=== PATIENT | male | born 1940 | race African-American/Black ===

== ENCOUNTER 2024-07-07 09:04 | Outpatient (CLI) | payer OTHER, SELFPAY ==
--- NOTE | ~2024-07-07 | US_ITS ---
US retroperitoneal comp Ordering provider: Jose Luna, History: . Chronic kidney disease stage 3 . Comparison: None. Technique: Ultrasound bilateral kidneys. Findings: RIGHT KIDNEY: Decreased echogenicity is noted. Measures 10x 6.1 cm in length which is normal in size. Superior pole cyst is seen measuring 3.2 x 2.8 x 2.6 cm.. No renal mass. Stone in the superior pole is seen measuring 1.9 x 0.8 x 1.2 cm. Otherwise, No hydronephrosis. Normal renal cortical thickness. LEFT KIDNEY: Increased echogenicity. Measures 10.8x 6.1x 4.8 cm in length which is normal in size. Cy st is seen in the medial aspect measuring 4.6 x 4.5 x 4.6 cm. No renal mass or visualized echogenic s tones. Otherwise, No hydronephrosis. Normal renal cortical thickness. BLADDER: Wall thicknesses 0.2 cm. Ureteral jets were seen bilaterally. Enlarged prostate measuring 6.7 x 5 x 6.3 cm. Incidental liver cyst measuring 7.4 x 5.5 x 6.7 cm. IMPRESSION: Stone in the right kidney upper pole.. Increased echogenicity of both kidneys which may indicate renal medical disease. Clinical correlation advised. Bilateral renal cysts. Enlarged prostate Hepatic cyst. Reviewed, dictated and finalized at location A. IMPRESSION: Stone in the right kidney upper pole.. Increased echogenicity of both kidneys which may indicate renal medical disease . Clinical correlation advised. Bilateral renal cysts. Enlarged prostate Hepatic cyst.
--- OUTSIDE RECORDS SUMMARY | 2024-07-07 09:18 | XMS_ITS | CONTINUITY OF CARE DOCUMENT ---
Author Name luiza jarrett Address Unknown Organization [facility] Address [address] [place] [address] Phone [phone] Care Team Providers Care Box Strapper Name Role Phone Jersey MCBRIDE, Nataliya Mchugh Unavailable [phone] FARHEEN MCBRIDE, FRIDA Unavailable [phone] FRIDA ZHONG MD Unavailable PROBLEMS Condition Status Date Provider Notes S/P Biotronik dc (MRI Safe) pm active Pretty Lizama Afib active Mandie Ragland HTN essential active Nataliya Putnam MD Syncope vasovagal active Nataliya Littlejohn Cardiac murmur active Nataliya Putnam MD Mitral regurgitation active Nataliya rodríguez MD Sleep apnea, obstructive active Starlabobby geeia 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 typical active Nataliya licea MD Hyperlipidemia active Arjun Conrad MD Unsteady gait active Nataliya Putnam MD Mitral regurgitation active Nataliya rodríguez MD Cardiology examination active Nataliya singleton MD ENCOUNTERS Date Type Provider Location Encounter Diag nosis - In-person encounter Office Visit Nataliya Putnam MD [facility] Cardiology examination - In-person encounter Office Visit Nataliya Putnam MD [facility] - In-person encounter Office Visit Nataliya Putnam MD [facility] Mitral regurgitation - In-person encounter Office Visit Nataliya Putnam MD [facility] - In-person encounter Office Visit Nataliya Putnam MD [facility] Unsteady gait - In-person encounter Office Visit Nataliya Putnam MD [facility] - In-person encounter Office Visit Nataliya Putnam MD [facility] - In-person encounter Office Visit Nataliya Putnam MD [facility] - In-person encounter Office Visit Nataliya Putnam MD [facility] - In-person encounter Office Visit Nataliya Putnam MD [facility] - In-person encounter Office Visit Nataliya Putnam MD [facility] Sleep apnea, obstructive - In-person encounter Office Visit Nataliya Putnam MD [facility] - In-person encounter Office Visit Nataliya Putnam MD [facility] - In-person encounter Office Visit Arjun Conrad MD [facility] Hyperlipidemia - In-person encounter Office Visit Arjun Conrad MD [facility] - In-person encounter Office Visit Nataliya Putnam MD [facility] Sick sinus syndromeAtrial fib paroxysmalAtrial flutter ? typical - In-person encounter Office Visit Nataliya Putnam MD [facility] HTN essentialSyncope vasovagalCardiac murmurMitral regurgitationSleep apnea, obstructiveCarotid bruit rightCongenital heart diseaseEdema - localized VITAL SIGNS Date Observation Value Provider Body Mass Index (Ratio) 24.23 kg/m2 Arturo Putnam MD blood pressure, diastolic 84 mm[Hg] Yesenia nkLog blood pressure, systolic 128 mm[Hg] Yary og weight E&M 159.4 [lb_av] [facility] pulse rate 70 /min [facility] blood pressure, cuff size regular [facility], [facility] mm[Hg] [facility] blood pressure, systolic 128 mm[Hg] Tab [facility] oxygen saturation, oximetry 100 % [facility] respiratory rate E&M 12 /min [facility] height E&M 68 [in_i] [facility] Body Mass Index (Ratio) 26.76 kg/m2 Arturo Putnam MD pulse rate 61 /min [facility] blood pressure, diastolic 102 mm[Hg] [facility] blood pressure, systolic 176 mm[Hg] [facility] oxygen saturation, oximetry 98 % [facility] respiratory rate E&M 16 /min Lesa luna weight E&M 176 [lb_av] [facility] height E&M 68 [in_i] [facility] Body Mass Index (Ratio) 27.82 kg/m2 Arturo Putnam MD blood pressure, diastolic 92 mm[Hg] Yesenia mcnealLog blood pressure, systolic 157 mm[Hg] Yary pulse rate 61 /min Bernabe blood pressure, cuff size regular Ja [facility] blood pressure, diastolic 92 mm[Hg] Ja [facility] blood pressure, systolic 157 mm[Hg] Melita [facility] oxygen saturation, oximetry 99 % Bernabe respiratory rate E&M 12 /min Bernabe weight E&M 183 [lb_av] Bernabe height E&M 68 [in_i] [facility] Body Mass Index (Ratio) 31.11 kg/m2 Arturo Putnam MD blood pressure, diastolic -1 mm[Hg] [facility], systolic 149 mm[Hg] Yary Callahangilmer blood pressure, diastolic 99 mm[Hg] [facility] emir Montez blood pressure, systolic 149 mm[Hg] oJn Montez oxygen saturation, oximetry 98 % Regina Montez pulse rate 73 /min Regina Montez weight E&M 204.6 [lb_av] Regina Montez respiratory rate E&M 16 /min Regina chilel height E&M 68 [in_i] Regina Montez Body Mass Index (Ratio) 32.99 kg/m2 Arturo Putnam MD blood pressure, diastolic 80 mm[Hg] Yesenia mcnealLoggilmer blood pressure, systolic 140 mm[Hg] Yary Callahanoggilmer blood pressure, cuff size large Tr meek Watkins blood pressure, diastolic 80 mm[Hg] Tr meek Watkins blood pressure, systolic 140 mm[Hg] Kvng Watkins oxygen saturation, oximetry 97 % Nataly Watkins respiratory rate E&M 18 /min Nataly Watkins pulse rate 59 /min Nataly Watkins weight E&M 217 [lb_av] Nataly Watkins height E&M 68 [in_i] Nataly Watkins Body Mass Index (Ratio) 34.82 kg/m2 Arturo Putnam MD blood pressure, diastolic 80 mm[Hg] Li nkLoggilmer blood pressure, systolic 136 mm[Hg] Yary kLogic blood pressure, cuff size regular Cy ntcassandraa Farnsworth blood pressure, diastolic 80 mm[Hg] Cy ntcassandraa Farnsworth blood pressure, systolic 136 mm[Hg] Elizabeth estella Farnsworth pulse rate 73 /min Claudia Campbel l oxygen saturation, oximetry 93 % Claudia Farnsworth respiratory rate E&M 18 /min Claudia Farnsworth weight E&M 229 [lb_av] Claudia Campbel l height E&M 68 [in_i] Claudia Campbel l Body Mass Index (Ratio) 34.51 kg/m2 Arturo Putnam MD blood pressure, cuff size regular Cy ntnadja Farnsworth pulse rate 63 /min Claudia Campbel l blood pressure, diastolic 90 mm[Hg] Cy ntcassandraa Farnsworth blood pressure, systolic 138 mm[Hg] Elizabeth brijesha Farnsworth oxygen saturation, oximetry 98 % Claudia Farnsworth respiratory rate E&M 16 /min Claudia Farnsworth weight E&M 227 [lb_av] Claudia Campbel l height E&M 68 [in_i] Claudia Campbel l Body Mass Index (Ratio) 33.90 kg/m2 Arturo Putnam MD blood pressure, diastolic 92 mm[Hg] To nsha Calzada blood pressure, systolic 169 mm[Hg] Ton [facility] respiratory rate E&M 16 /min [facility] pulse rate 67 /min [facility] weight E&M 223 [lb_av] [facility] height E&M 68 [in_i] [facility] Body Mass Index (Ratio) 34.82 kg/m2 Arturo Putnam MD respiratory rate E&M 16 /min [facility] blood pressure, diastolic 67 mm[Hg] To [facility] blood pressure, systolic 140 mm[Hg] Ton [facility] oxygen saturation, oximetry 98 % [facility] pulse rate 60 /min [facility] weight E&M 229 [lb_av] [facility] height E&M 68 [in_i] [facility] Body Mass Index (Ratio) 35.58 kg/m2 Arturo Putnam MD respiratory rate E&M 16 /min Claudia Farnsworth blood pressure, cuff size regular Cy froylan Farnsworth blood pressure, diastolic 80 mm[Hg] Cy ntnadja Farnsworth blood pressure, systolic 136 mm[Hg] Elizabeth estella Farnsworth oxygen saturation, oximetry 98 % Claudia Farnsworth pulse rate 61 /min Claudia Campbel l weight E&M 234 [lb_av] Claudia Campbel l height E&M 68 [in_i] Claudia Campbel l Body Mass Index (Ratio) 35.97 kg/m2 Arturo Putnam MD blood pressure, diastolic 93 mm[Hg] Pablo Busby blood pressure, systolic 143 mm[Hg] Marisela Busby oxygen saturation, oximetry 94 % Jonas Busby respiratory rate E&M 18 /min Caleb Busby pulse rate 67 /min Jonas Keen nsgagan weight E&M 236.6 [lb_av] Jonas alarcon height E&M 68 [in_i] Jonas poole Body Mass Index (Ratio) 36.21 kg/m2 Tio Plurad blood pressure, cuff size regular Ke rri Gruenenfelder blood pressure, diastolic 82 mm[Hg] Ke rri Gruenenfelder blood pressure, systolic 142 mm[Hg] Ker ri Gruenenfelder oxygen saturation, oximetry 98 % Koki Gruenenfelder respiratory rate E&M 18 /min Koki G ruenenfelder pulse rate 61 /min Koki Gruenenfe lder weight E&M 238.2 [lb_av] Koki Gruenenf [facility] height E&M 68 [in_i] Koki Gruenenfe lder Body Mass Index (Ratio) 36.18 kg/m2 Arturo Putnam MD blood pressure, cuff size regular Ke rri Gruenenfelder blood pressure, diastolic 90 mm[Hg] Ke rri Gruenenfelder blood pressure, systolic 142 mm[Hg] Ker ri Gruenenfelder oxygen saturation, oximetry 97 % Koki Gruenenfelder respiratory rate E&M 20 /min Koki G ruenenfelder pulse rate 69 /min Koki Gruenenfe lder weight E&M 238 [lb_av] Koki Gruenenfe lder height E&M 68 [in_i] Koki Gruenenfe lder Body Mass Index (Ratio) 36.73 kg/m2 Kaia Conrad MD blood pressure, diastolic 87 mm[Hg] Pablo Busby blood pressure, systolic 139 mm[Hg] Marisela Daviesyash Busby oxygen saturation, oximetry 94 % Jonas Busby respiratory rate E&M 18 /min Caleb Busby pulse rate 64 /min Jonas poole weight E&M 241.6 [lb_av] Jonas alarcon height E&M 68 [in_i] Jonas poole Body Mass Index (Ratio) 36.73 kg/m2 Arturo Putnam MD blood pressure, diastolic 87 mm[Hg] Pablo Elaine Busby blood pressure, systolic 137 mm[Hg] Marisela Ruth Busby oxygen saturation, oximetry 95 % Jonas Busby respiratory rate E&M 18 /min Caleb yash SchwarzBusby pulse rate 62 /min Jonas poole weight E&M 241.6 [lb_av] Jonas alarcon height E&M 68 [in_i] Jonas poole Body Mass Index (Ratio) 36.43 kg/m2 Arturo Putnam MD blood pressure, resting Yes Pretty Schwarzenson blood pressure, diastolic 90 mm[Hg] Pablo mitchelAllyyamilet Busby blood pressure, systolic 144 mm[Hg] Marisela Guptawendy Busby oxygen saturation, oximetry 94 % Jonasyamilet Busby respiratory rate E&M 18 /min Caleb Busby pulse rate 63 /min Jonas poole weight E&M 239.6 [lb_av] Jonas alarcon height E&M 68 [in_i] Jonas poole ALLERGIES No Known Drug Allergies RESULTS Date Observation Value Provider Reference Range Interpretation Location activated partial thromboplastin time (aPTT) 31.0 s LinkLog[facility] Units converted. See lab report for original value. prothrombin time (patient) 11.4 s [facility] 9.1-12.0 international normalized ratio (INR) 1.1 [facility] 0.8-1.2 bacteria, urine microscopy Few [facility] None seen/Few Crystal Type, Urine Calcium Oxalate [facility] N/A cast type, urinalysis Hyaline casts [facility] N/A hyaline casts, urine Present [facility] None seen Abnormal epithelial cells, urine 0-10 [facility] 0 - 10 RBC, Urine 3-10 /hpf [facility] 0 - 2 Abnormal WBC urine on microscopy 0-5 /hpf [facility] 0 - 5 urinalysis, microscopic examination See below: [facility] nitrate, urine Negative [facility] Negative urobilinogen, urine, semiquantitative (dipstick) 1.0 [facility] 0.2-1.0 bilirubin, urine Negative [facility] Negative hemoglobin, urine, by dipstick Trace [facility] Negative Abnormal ketones, urine, by test strip Negative [facility] Negative glucose, urine Negative [facility] Negative protein, urine, semiquantitative (dipstick) Negative [facility] Negative/Tra ce leukocyte esterase, urine, by dipstick Negative [facility] Negative appearance, urine Clear [facility] Clear urine color Yellow [facility]ic Yellow pH, urine, semiquantitative 6.5 [facility] 5.0-7.5 specific gravity, body fluid 1.022 [facility] 1.005-1.030 basophil count, absolute 0.1 x10E3/uL [facility] 0.0-0.2 Eosinophil Absolute Count 0.3 X10E3/UL [facility] 0.0-0.4 monocyte count, blood, automated 0.9 X10E3/UL [facility] 0.1-0.9 lymphocyte count, blood, automated 3.2 X10E3/UL [facility] 0.7-3.1 High Absolute Neutrophils 4.1 X10E3/UL [facility] 1.4-7.0 basophils as percent of blood leukocytes 1 % [facility] eosinophils as percent of blood leukocytes 3 % [facility] monocytes as percent of blood leukocytes 10 % [facility] lymphocytes as percent of blood leukocytes 37 % [facility] neutrophils as percent of blood leukocytes 49 % [facility] platelet count 181 X10E3/UL [facility] 500-888 6304/08/ 08 red blood cell distribution width 15.0 % [facility] 12.3-15.4 mean corpuscular hemoglobin concentration, RBC 33.6 G/DL [facility] 31.5-35.7 mean corpuscular hemoglobin, RBC 31.0 pg [facility] 26.6-33.0 mean corpuscular volume, RBC 92 fL [facility] 79-97 hematocrit, blood 44.0 % [facility] 37.5-51.0 hemoglobin, blood 14.8 g/dL [facility] 12.6-17.7 erythrocyte (RBC) count 4.77 X10E6/UL [facility] 4.14-5.80 leukocyte count, blood 8.5 X10E3/UL [facility] 3.4-10.8 alanine aminotransferase (SGPT), serum 21 1/L [facility] 0-44 aspartate aminotransferase (SGOT), serum 26 1/L [facility] 0-40 alkaline phosphatase, serum 91 1/L [facility] 39-117 bilirubin, serum, total 0.8 mg/dL [facility] 0.0-1.2 albumin/globulin ratio, serum 1.4 [facility] 1.2-2.2 globulin, serum 3.0 [facility] 1.5-4.5 albumin, serum 4.3 g/dL [facility] 3.5-4.8 protein, total, serum 7.3 g/dL [facility] 6.0-8.5 calcium, serum 9.7 mg/dL [facility] 8.6-10.2 carbon dioxide, venous blood 29 mmol/L [facility] 18-29 chloride, serum 102 mmol/L [facility] 96-106 potassium, serum 4.0 mmol/L [facility] 3.5-5.2 sodium, serum 146 mmol/L [facility] 134-144 High urea nitrogen/creatinine ratio, serum 15 [facility] 10-24 eGFR if not 41 mL/min/{1.7 3_m2} [facility]ic >59 Low creatinine, serum 1.60 mg/dL [facility] 0.76-1.27 High urea nitrogen, blood 24 mg/dL [facility]ic 8-27 blood glucose, random 90 mg/dL [facility] 65-99 HISTORY OF MEDICATION USE Medication Status Instructions Dates Provider Indications Com ments Eliquis 5 mg tablet active TAKE 1 TABLET BY MOUTH TWICE DAILY 0 Cassandra Scott 0.01% drops active Use as needed 2 Claudia Farnsworth Fish Oil 300-1,000 mg capsule active Take once a day 4 Claudia Farnsworth Fish Oil 360-1,200 mg capsule completed 1 once a day - 6 Juany Franks NP tramadol 50 mg tablet active 1 tablet once a day Jonas Busby Eliquis 5 mg tablet completed Take 1 tablet by mouth twice a day 0 - 0 Roland Villalpando MULTIVITAMINS ORAL CAPSULE active 1 tablet once a day Jonas Busby potassium chloride 20 mEq tablet,ER particles/crystal s active 1 tablet once a day Jonas Busby lisinopril 40 mg tablet active 1 tablet once a day 2 Nataliya Putnam MD atorvastatin 40 mg tablet active once a day Jonas Busby furosemide 20 mg tablet active once a day Jonas Busby atenolol 25 mg tablet active 1 tablet once a day Jonas Busby nifedipine 60 mg tablet extended release active 1 tablet once a day Jonas Busby calcitriol 0.25 mcg capsule active once a day Jonas Busby SOCIAL HISTORY Date Observation Value Provider smoking status Never smoker Nataliya singleton MD smoking status Never smoker Lesa Chou social history reviewed E&M revi ewed - no changes required Nataliya Putnam MD social history E&M S moking History: Stephanie moran has never smoked. Nataliya Putnam MD social history reviewed E&M revi ewed - no changes required Nataliya Putnam MD smoking status Never smoker Regina Tc social history E&M S moking History: Stephanie moran has never smoked. Nataliya Putnam MD social history reviewed E&M revi ewed - no changes required Nataliya Putnam MD smoking status Never smoker Nataly gongora social history E&M S moking History: Stephanie moran has never smoked. Nataliya Putnam MD social history reviewed E&M revi ewed - no changes required Nataliya Putnam MD smoking status Never smoker Claudia barger social history reviewed E&M revi ewed - no changes required Nataliya Putnam MD social history E&M S moking History: Stephanie moran has never smoked. Nataliya Putnam MD smoking status Never smoker Claudia barger smoking status Never smoker Nataliya singleton MD social history E&M S moking History: Stephanie moran has never smoked. 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 Starla Ventimiglia BUFFET WAITER/WAITRESS smoking status Never smoker Jonas Crook social history E&M S moking History: P luisa has never smoked. Nataliya Putnam MD social history reviewed E&M revi ewed - no changes required Nataliya Putnam MD smoking status Never smoker Koki torres number of grandchildren Nataliya Putnam MD social history reviewed E&M revi ewed - no changes required Nataliya Putnam MD social history E&M S moking History: Stephanie moran has never smoked. Nataliya Putnam MD smoking status Never smoker Koki torres number of grandchildren Arjun Conrad MD smoking status Never smoker Jonas Mera serinameredith social history reviewed E&M revi ewed - no changes required Nataliya Putnam MD social history E&M S moking History: Stephanie moran has never smoked. Nataliya Putnam MD smoking status Never smoker Jonas Crook number of grandchildren Nataliya Putnam MD social history reviewed E&M revi ewed - no changes required Nataliya Putnam MD social history E&M S moking History: Stephanie moran has never smoked. Nataliya Putnam MD smoking status Never smoker Jonas Crook FAMILY HISTORY Family Member Condition Mother Family History of Di abetes: INSURANCE PROVIDERS Payer name Policy type / Coverage type Ted red constitution party ID [employer] MEDICARE ADVANTAGE ST 0 003 (HMO POS) Medicare [id number] ADVANCE DIRECTIVES Name Date DISCUSSED - NO DECISION MADE TREATMENT PLAN Date Name Performer [id number],S,C onclusions: T echnically difficult study, limited views secondary to poor acoustic windows. Interpretation is based on available limited B BENEDICTO JOINER Study Dt:01/02/2022 Page 2 of 2 v iews. There is borderline left ventricular hypertrophy. Mitral inflow Doppler demonstrates pseudonormal pattern consistent w ith diastolic dysfunction. Left ventricular ejection fraction is estimated at 60 %. T he left atrium is normal in size. M ild to moderate mitral valve regurgitation. T ri-leaflet aortic valve. Mild aortic valve regurgitation. T he tricuspid valve is normal in appearance and function. Right ventricular systolic pressure is within normal limits. Nataliya Putnam MD [id number],C, R ecent dual chamber pacemaker placement. A-paced rhythm. 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 Incision site is healed. Continues as well on atenolol 25mg daily. August 10, 2020 6 0% pacemaker.Normal function February 05, 2022 pacer function better Nataliya Putnam MD [id number],C, N egative carotid US Conclusions: 1 . Normal carotid duplex examination. 2 . Vertebral flow is antegrade bilaterally August 10, 2020 C arotid 04/18/20 CONCLUSIONS: 1 . Mild plaque with less than 50% stenosis of the internal carotid arteries bilaterally. 2 . Vertebral flow is antegrade bilaterally. Nataliya Putnam MD [id number],C, O n A/C. eliquis, pacer check showed 6 episodes of afib flutter lasting for a few secs. Nataliya Putnam MD [id number],C, T he patient should utilize CPAP at a pressure of 12cm during all sleep periods. In the lab, the patient utilized a wisp nasal interface, size large. A heated humidifier and 15 minute ramp are recommended NEVER GOT CPAP March 30, 2020 A rrange IHS because apparently that is what was needed August 10, 2020 T he patient is using CPAP on a regular basis. The patient has been benefiting from therapy and should continue use. February 22, 2021 T he patient is using CPAP on a regular basis. The patient has been benefiting from therapy and should continue use. September 05, 2022 T he patient is using CPAP on a regular basis. The patient has been benefiting from therapy and should continue use. Nataliya Putnam MD [id number],C, B P today: 157/92 P rior BP: 149/-1 (02/05/2022) Labs Reviewed: C reat: 1.60 (09/23/2016) Nataliya Putnam MD [id number],C,uses walker S yumiko Putnam MD [id number],C, O n Eliquis for anti coagulation. N o bleeding Nataliya Putnam MD [id number],C, R LE edema, > left. May have issues with venous insufficiency Nataliya Putnam MD [id number],C, O n Eliquis for anti coagulation. N o bleeding Nataliya Putnam MD [id number],C,E CHO 12/2021 L eft ventricular ejection fraction is estimated at 60 %. T he left atrium is normal in size. M ild to moderate mitral valve regurgitation. T ri-leaflet aortic valve. Mild aortic valve regurgitation. T he tricuspid valve is normal in appearance and function. Right ventricular systolic pressure is within normal limits. Nataliya Putnam MD [id number],C, N egative carotid US Conclusions: 1 . Normal carotid duplex examination. 2 . Vertebral flow is antegrade bilaterally August 10, 2020 Edyta obando 04/18/20 CONCLUSIONS: 1 . Mild plaque with less than 50% stenosis of the internal carotid arteries bilaterally. 2 . Vertebral flow is antegrade bilaterally. Nataliya Putnam MD [id number],C, R ecent dual chamber pacemaker placement. A-paced rhythm. 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 Incision site is healed. Continues as well on atenolol 25mg daily. August 10, 2020 6 0% pacemaker.Normal function February 05, 2022 pacer function better Nataliya Putnam MD [id number],C,L eft ventricular ejection fraction is estimated at 60 %. T he left atrium is normal in size. M ild to moderate mitral valve regurgitation. T ri-leaflet aortic valve. Mild aortic valve regurgitation. T he tricuspid valve is normal in appearance and function. Right ventricular systolic pressure is within normal limits. B P today: 149/99 P rior BP: 140/80 (02/22/2021) Labs Reviewed: C reat: 1.60 (09/23/2016) Discussion of benefits for remote patient monitoring took place. Patient gives consent for remote monitoring of physiologic parameters including, but not limited to, weight, blood pressure, pulse oximetry, respiratory flow rate. H is updated medication list for this problem includes: Lisinopril 40 Mg Tablet (Lisinopril) ..... 1 tablet once a day Furosemide 20 Mg Tablet (Furosemide) ..... Once a day Nifedipine 60 Mg Tablet Extended Release (Nifedipine) ..... 1 tablet once a day Atenolol 25 Mg Tablet (Atenolol) ..... 1 tablet once a day Nataliya Putnam MD [id number],S, H ad mild MR on previous Echo. Currently mild-mod. Increase lisinopril to 40mg daily E cho 04/18/20 C ONCLUSIONS: 1 . Limited parasternal views. Abnormal septal motion consistent with pacemaker or ICD implant . Normal left ventricular s ystolic function. Normal left ventricular size. Normal left ventricular wall thickness. E/E': 9.0. Left ventricular ejection f raction is measured at 65 %. 2 . Normal right ventricular size. Normal right ventricular systolic function. Linear artifact seen in the right ventricle is s uggestive of a catheter, pacer lead, or ICD lead. 3 . Mild to moderate mitral valve regurgitation. The mitral valve regurgitation is eccentric. 4 . Probably tri-leaflet aortic valve, although not all leaflets are clearly visualized. Trace to mild aortic valve regurgitation. 5 . There is mild tricuspid regurgitation. Nataliya Putnam MD [id number],C, R LE edema, > left. May have issues with venous insufficiency Nataliya Putnam MD [id number],C, N egative carotid US Conclusions: 1 . Normal carotid duplex examination. 2 . Vertebral flow is antegrade bilaterally August 10, 2020 C arotid 04/18/20 CONCLUSIONS: 1 . Mild plaque with less than 50% stenosis of the internal carotid arteries bilaterally. 2 . Vertebral flow is antegrade bilaterally. Nataliya Putnam MD [id number],C, B P today: 140/80 P rior BP: 136/80 (08/10/2020) Labs Reviewed: C reat: 1.60 (09/23/2016) His updated medication list for this problem includes: Lisinopril 40 Mg Tablet (Lisinopril) ..... 1 tablet once a day Furosemide 20 Mg Tablet (Furosemide) ..... Once a day Nifedipine 60 Mg Tablet Extended Release (Nifedipine) ..... 1 tablet once a day Atenolol 25 Mg Tablet (Atenolol) ..... 1 tablet once a day Nataliya Putnam MD [id number],C, T he patient should utilize CPAP at a pressure of 12cm during all sleep periods. In the lab, the patient utilized a wisp nasal interface, size large. A heated humidifier and 15 minute ramp are recommended NEVER GOT CPAP March 30, 2020 A rrange IHS because apparently that is what was needed August 10, 2020 T he patient is using CPAP on a regular basis. The patient has been benefiting from therapy and should continue use. February 22, 2021 T he patient is using CPAP on a regular basis. The patient has been benefiting from therapy and should continue use. Nataliya Putnam MD [id number],C, O n [place] for anti coagulation. N o bleeding Nataliya Putnam MD [id number],C, N egative carotid US Conclusions: 1 . Normal carotid duplex examination. 2 . Vertebral flow is antegrade bilaterally August 10, 2020 C arotid 04/18/20 CONCLUSIONS: 1 . Mild plaque with less than 50% stenosis of the internal carotid arteries bilaterally. 2 . Vertebral flow is antegrade bilaterally. Nataliya Putnam MD [id number],C,H ad mild MR on previous Echo. Currently mild-mod. Increase lisinopril to 40mg daily E cho 04/18/20 C ONCLUSIONS: 1 . Limited parasternal views. Abnormal septal motion consistent with pacemaker or ICD implant . Normal left ventricular s ystolic function. Normal left ventricular size. Normal left ventricular wall thickness. E/E': 9.0. Left ventricular ejection f raction is measured at 65 %. 2 . Normal right ventricular size. Normal right ventricular systolic function. Linear artifact seen in the right ventricle is s uggestive of a catheter, pacer lead, or ICD lead. 3 . Mild to moderate mitral valve regurgitation. The mitral valve regurgitation is eccentric. 4 . Probably tri-leaflet aortic valve, although not all leaflets are clearly visualized. Trace to mild aortic valve regurgitation. 5 . There is mild tricuspid regurgitation. Nataliya Putnam MD [id number],C, R ecent dual chamber pacemaker placement. A-paced rhythm. 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 Incision site is healed. Continues as well on atenolol 25mg daily. August 10, 2020 6 0% pacemaker.Normal function Nataliya Putnam MD [id number],C, R emains on Eliquis H is updated medication list for this problem includes: Atenolol 25 Mg Oral Tablet (Atenolol) ..... One tab. daily Nataliya Putnam MD [id number],S, H is updated medication list for this problem includes: Atorvastatin Calcium 40 Mg Oral Tablet (Atorvastatin calcium) ..... Once daily Nataliya Putnam MD [id number],C, H is updated medication list for this problem includes: Lisinopril 30 Mg Oral Tablet (Lisinopril) ..... Take 1 tab daily Furosemide 20 Mg Oral Tablet (Furosemide) ..... Once daily Atenolol 25 Mg Oral Tablet (Atenolol) ..... One tab. daily Nifedipine Er 60 Mg Oral Tablet Extended Release 24 Hour (Nifedipine) ..... One tab. daily BP today: 136/80 Prior BP: 138/90 (03/30/2020) Labs Reviewed: C reat: 1.60 (09/23/2016) Nataliya Putnam MD [id number],C, T he patient should utilize CPAP at a pressure of 12cm during all sleep periods. In the lab, the patient utilized a wisp nasal interface, size large. A heated humidifier and 15 minute ramp are recommended NEVER GOT CPAP March 30, 2020 A rrange IHS because apparently that is what was needed August 10, 2020 T he patient is using CPAP on a regular basis. The patient has been benefiting from therapy and should continue use. Nataliya Putnam MD [id number],C, O n Eliquis for anti coagulation. N o bleeding Nataliya Putnam MD Cardiology:atrial paced on ekg S yumiko Putnam MD Cardiology:mitral regurgiation S yumiko Putnam MD Cardiology: C RIKIK CAROTID N egative carotid US Conclusions: 1 . Normal carotid duplex examination. 2 . Vertebral flow is antegrade bilaterally August 10, 2020 C arotid 04/18/20 C ONCLUSIONS: 1 . Mild plaque with less than 50% stenosis of the internal carotid arteries bilaterally. 2 . Vertebral flow is antegrade bilaterally. October 23, 2023 Nataliya Putnam MD Cardiology:This visi t has been a part of the consistent, comprehensive, and ongoing management of the chronic medical condition(s) listed above for the patient. O n Eliquis for anti coagulation. No bleeding, brusing on arms last remote check 03/02/23 0% AF burden Nataliya Putnam MD Cardiology: T he patient should utilize CPAP at a pressure of 12cm during all sleep periods. In the lab, the patient utilized a wisp nasal interface, size large. A heated humidifier and 15 minute ramp are recommended September 05, 2022 T he patient is using CPAP on a regular basis. The patient has been benefiting from therapy and should continue use. march 13, 2023 c ontinues to use CPAP on regular basis October 23, 2023 T his visit has been a part of the consistent, comprehensive, and ongoing management of the chronic medical condition(s) listed above for the patient.The patient is using CPAP on a regular basis. The patient has been benefiting from therapy and should continue use. Nataliya Putnam MD Cardiology:This visi t has been a part of the consistent, comprehensive, and ongoing management of the chronic medical condition(s) listed above for the patient. c hronic knee pain, uses walker Nataliya Putnam MD Cardiology:NO signif icant change in current echo from 2023, MR is stable T his visit has been a part of the consistent, comprehensive, and ongoing management of the chronic medical condition(s) listed above for the patient. E cho CONCLUSIONS: 1 . Technically difficult study, limited views secondary to poor acoustic windows. Interpretation is based on available limited v iews. Normal left ventricular systolic function. Normal left ventricular size. Normal left ventricular wall thickness. Mitral i nflow Doppler demonstrates pseudonormal pattern consistent with diastolic dysfunction. E/E': 9.3. Left ventricular ejection f raction is measured at 60 %. 2 . Mild enlargement of right ventricle. Normal right ventricular systolic function. Linear artifact seen in the right ventricle is s uggestive of a catheter, pacer lead, or ICD lead. 3 . Moderate mitral valve regurgitation. 4 . There is mild to moderate tricuspid regurgitation. Right ventricular systolic pressure is consistent with mild pulmonary h ypertension. The IVC is not well visualized. Unable to adequately assess the RVSP. E lectronically signed by Nataliya Putnam MD on 04/06/2023 at 3:47 PM Nataliya Putnam MD Cardiology:CHECK CAR OTID N egative carotid US Conclusions: 1 . Normal carotid duplex examination. 2 . Vertebral flow is antegrade bilaterally August 10, 2020 C arotid 3/3/21 C ONCLUSIONS: 1 . Mild plaque with less than 50% stenosis of the internal carotid arteries bilaterally. 2 . Vertebral flow is antegrade bilaterally. Juany Franks NP Cardiology: O yamilet Bow[place] for anti coagulation. N o bleeding, brusing on arms last remote check 03/02/23 0% AF burden Juany Franks NP Cardiology:chronic knee pain, us es walker Juany Franks NP Cardiology:echo: EF 60%, DD, mild-mod MR, mild AR REPEAT TO EVAL VALVES NEEDS TO WRITE DOWN BP AND SEND RESULTS TO OFFICE FOR ADUSTING [facility] S ANGELA HE HAS VALVULAR DISEASE IT WILL BE HELPFUL Juany Franks NP Cardiology:rechecked manually 170/90, pt reports compliance with medications, but did eat [employer] last evening. reports several dietary indiscretions over the last few days '[employer], pickles....' reviewed sodium restrictions B P today: 176/102 P rior BP: 157/92 (09/05/2022) Labs Reviewed: C reat: 1.60 (09/23/2016) His updated medication list for this problem includes: Lisinopril 40 Mg Tablet (Lisinopril) ..... 1 tablet once a day Furosemide 20 Mg Tablet (Furosemide) ..... Once a day Nifedipine 60 Mg Tablet Extended Release (Nifedipine) ..... 1 tablet once a day Atenolol 25 Mg Tablet (Atenolol) ..... 1 tablet once a day Juany Franks NP Cardiology: T he patient should utilize CPAP at a pressure of 12cm during all sleep periods. In the lab, the patient utilized a wisp nasal interface, size large. A heated humidifier and 15 minute ramp are recommended NEVER GOT CPAP March 30, 2020 A rrange IHS because apparently that is what was needed August 10, 2020 T he patient is using CPAP on a regular basis. The patient has been benefiting from therapy and should continue use. February 22, 2021 T he patient is using CPAP on a regular basis. The patient has been benefiting from therapy and should continue use. September 05, 2022 T he patient is using CPAP on a regular basis. The patient has been benefiting from therapy and should continue use. march 13, 2023 c ontinues to use CPAP on regular basis Juany Franks NP Cardiology:Conclusio ns: T echnically difficult study, limited views secondary to poor acoustic windows. Interpretation is based on available limited B BENEDICTO JOINER Study Dt:01/02/2022 Page 2 of 2 v iews. There is borderline left ventricular hypertrophy. Mitral inflow Doppler demonstrates pseudonormal pattern consistent w ith diastolic dysfunction. Left ventricular ejection fraction is estimated at 60 %. T he left atrium is normal in size. M ild to moderate mitral valve regurgitation. T ri-leaflet aortic valve. Mild aortic valve regurgitation. T he tricuspid valve is normal in appearance and function. Right ventricular systolic pressure is within normal limits. Nataliya Putnam MD Cardiology: R ecent dual chamber pacemaker placement. A-paced rhythm. 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 Incision site is healed. Continues as well on atenolol 25mg daily. August 10, 2020 6 0% pacemaker.Normal function February 05, 2022 pacer function better Nataliya Putnam MD Cardiology: N egative carotid US Conclusions: 1 . Normal carotid duplex examination. 2 . Vertebral flow is antegrade bilaterally August 10, 2020 C arotid 04/18/20 C ONCLUSIONS: 1 . Mild plaque with less than 50% stenosis of the internal carotid arteries bilaterally. 2 . Vertebral flow is antegrade bilaterally. Nataliya Putnam MD Cardiology: O n A/C. eliquis, pacer check showed 6 episodes of afib flutter lasting for a few secs. Nataliya Putnam MD Cardiology: T he patient should utilize CPAP at a pressure of 12cm during all sleep periods. In the lab, the patient utilized a wisp nasal interface, size large. A heated humidifier and 15 minute ramp are recommended NEVER GOT CPAP March 30, 2020 A rrange IHS because apparently that is what was needed August 10, 2020 T he patient is using CPAP on a regular basis. The patient has been benefiting from therapy and should continue use. February 22, 2021 T he patient is using CPAP on a regular basis. The patient has been benefiting from therapy and should continue use. September 05, 2022 T he patient is using CPAP on a regular basis. The patient has been benefiting from therapy and should continue use. Nataliya Putnam MD Cardiology: B P today: 157/92 P rior BP: 149/-1 (02/05/2022) Labs Reviewed: C reat: 1.60 (09/23/2016) Nataliya Putnam MD Cardiology:uses walker Nataliya Putnam MD Cardiology: O n Eliquis for anti coagulation. N o bleeding Nataliya Putnam MD Cardiology: R LE edema, > left. May have issues with venous insufficiency Nataliya Putnam MD Cardiology: O n Eliquis for anti coagulation. N o bleeding Nataliya Putnam MD Cardiology:ECHO 12/18 022 L eft ventricular ejection fraction is estimated at 60 %. T he left atrium is normal in size. M ild to moderate mitral valve regurgitation. T ri-leaflet aortic valve. Mild aortic valve regurgitation. T he tricuspid valve is normal in appearance and function. Right ventricular systolic pressure is within normal limits. Nataliya Putnam MD Cardiology: N egative carotid US Conclusions: 1 . Normal carotid duplex examination. 2 . Vertebral flow is antegrade bilaterally August 10, 2020 C arotid 04/18/20 C ONCLUSIONS: 1 . Mild plaque with less than 50% stenosis of the internal carotid arteries bilaterally. 2 . Vertebral flow is antegrade bilaterally. Nataliya Putnam MD Cardiology: R ecent dual chamber pacemaker placement. A-paced rhythm. 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 Incision site is healed. Continues as well on atenolol 25mg daily. August 10, 2020 6 0% pacemaker.Normal function February 05, 2022 pacer function better Nataliya Putnam MD Cardiology:Left vent ricular ejection fraction is estimated at 60 %. T he left atrium is normal in size. M ild to moderate mitral valve regurgitation. T ri-leaflet aortic valve. Mild aortic valve regurgitation. T he tricuspid valve is normal in appearance and function. Right ventricular systolic pressure is within normal limits. B P today: 149/99 P rior BP: 140/80 (02/22/2021) L abs Reviewed: C reat: 1.60 (09/23/2016) Discussion of benefits for remote patient monitoring took place. Patient gives consent for remote monitoring of physiologic parameters including, but not limited to, weight, blood pressure, pulse oximetry, respiratory flow rate. H is updated medication list for this problem includes: Lisinopril 40 Mg Tablet (Lisinopril) ..... 1 tablet once a day Furosemide 20 Mg Tablet (Furosemide) ..... Once a day Nifedipine 60 Mg Tablet Extended Release (Nifedipine) ..... 1 tablet once a day Atenolol 25 Mg Tablet (Atenolol) ..... 1 tablet once a day Nataliya Putnam MD Cardiology: H ad mild MR on previous Echo. Currently mild-mod. Increase lisinopril to 40mg daily E cho 04/18/20 C ONCLUSIONS: 1 . Limited parasternal views. Abnormal septal motion consistent with pacemaker or ICD implant . Normal left ventricular s ystolic function. Normal left ventricular size. Normal left ventricular wall thickness. E/E': 9.0. Left ventricular ejection f raction is measured at 65 %. 2 . Normal right ventricular size. Normal right ventricular systolic function. Linear artifact seen in the right ventricle is s uggestive of a catheter, pacer lead, or ICD lead. 3 . Mild to moderate mitral valve regurgitation. The mitral valve regurgitation is eccentric. 4 . Probably tri-leaflet aortic valve, although not all leaflets are clearly visualized. Trace to mild aortic valve regurgitation. 5 . There is mild tricuspid regurgitation. Nataliya Putnam MD Cardiology: R LE edema, > left. May have issues with venous insufficiency Nataliya Putnam MD Cardiology: N egative carotid US Conclusions: 1 . Normal carotid duplex examination. 2 . Vertebral flow is antegrade bilaterally August 10, 2020 C arotid 04/18/20 C ONCLUSIONS: 1 . Mild plaque with less than 50% stenosis of the internal carotid arteries bilaterally. 2 . Vertebral flow is antegrade bilaterally. Nataliya Putnam MD Cardiology: B P today: 140/80 P rior BP: 136/80 (08/10/2020) Labs Reviewed: C reat: 1.60 (09/23/2016) His updated medication list for this problem includes: Lisinopril 40 Mg Tablet (Lisinopril) ..... 1 tablet once a day Furosemide 20 Mg Tablet (Furosemide) ..... Once a day Nifedipine 60 Mg Tablet Extended Release (Nifedipine) ..... 1 tablet once a day Atenolol 25 Mg Tablet (Atenolol) ..... 1 tablet once a day Nataliya Putnam MD Cardiology: T he patient should utilize CPAP at a pressure of 12cm during all sleep periods. In the lab, the patient utilized a wisp nasal interface, size large. A heated humidifier and 15 minute ramp are recommended NEVER GOT CPAP March 30, 2020 A rrange IHS because apparently that is what was needed August 10, 2020 T he patient is using CPAP on a regular basis. The patient has been benefiting from therapy and should continue use. February 22, 2021 T he patient is using CPAP on a regular basis. The patient has been benefiting from therapy and should continue use. Nataliya Putnam MD Cardiology: O n Eliquis for anti coagulation. N o bleeding Nataliya Putnam MD Cardiology follow up : N egative carotid US Conclusions: 1 . Normal carotid duplex examination. 2 . Vertebral flow is antegrade bilaterally August 10, 2020 C arotid 04/18/20 C ONCLUSIONS: 1 . Mild plaque with less than 50% stenosis of the internal carotid arteries bilaterally. 2 . Vertebral flow is antegrade bilaterally. Nataliya Putnam MD Cardiology follow up :Had mild MR on previous Echo. Currently mild-mod. Increase lisinopril to 40mg daily E cho 04/18/20 C ONCLUSIONS: 1 . Limited parasternal views. Abnormal septal motion consistent with pacemaker or ICD implant . Normal left ventricular s ystolic function. Normal left ventricular size. Normal left ventricular wall thickness. E/E': 9.0. Left ventricular ejection f raction is measured at 65 %. 2 . Normal right ventricular size. Normal right ventricular systolic function. Linear artifact seen in the right ventricle is s uggestive of a catheter, pacer lead, or ICD lead. 3 . Mild to moderate mitral valve regurgitation. The mitral valve regurgitation is eccentric. 4 . Probably tri-leaflet aortic valve, although not all leaflets are clearly visualized. Trace to mild aortic valve regurgitation. 5 . There is mild tricuspid regurgitation. Nataliya Putnam MD Cardiology follow up : R ecent dual chamber pacemaker placement. A-paced rhythm. care home AC with Eliquis, which he continues. Incision site is healed. Continues as well on atenolol 25mg daily. August 10, 2020 6 0% pacemaker.Normal function Nataliya Putnam MD Cardiology follow up : R agustin on Eliquis H is updated medication list for this problem includes: Atenolol 25 Mg Oral Tablet (Atenolol) ..... One tab. daily Nataliya Putnam MD Cardiology follow up : H is updated medication list for this problem includes: Atorvastatin Calcium 40 Mg Oral Tablet (Atorvastatin calcium) ..... Once daily Nataliya Putnam MD Cardiology follow up : H is updated medication list for this problem includes: Lisinopril 30 Mg Oral Tablet (Lisinopril) ..... Take 1 tab daily Furosemide 20 Mg Oral Tablet (Furosemide) ..... Once daily Atenolol 25 Mg Oral Tablet (Atenolol) ..... One tab. daily Nifedipine Er 60 Mg Oral Tablet Extended Release 24 Hour (Nifedipine) ..... One tab. daily BP today: 136/80 P rior BP: 138/90 (03/30/2020) Labs Reviewed: C reat: 1.60 (09/23/2016) Nataliya Putnam MD Cardiology follow up : T he patient should utilize CPAP at a pressure of 12cm during all sleep periods. In the lab, the patient utilized a wisp nasal interface, size large. A heated humidifier and 15 minute ramp are recommended NEVER GOT CPAP March 30, 2020 A rrange IHS because apparently that is what was needed August 10, 2020 T he patient is using CPAP on a regular basis. The patient has been benefiting from therapy and should continue use. Nataliya Putnam MD Cardiology follow up : O n [place] for anti coagulation. N o bleeding Nataliya Putnam MD Cardiology follow up : B P today: 138/90 P rior BP: 169/92 (09/30/2019) Labs Reviewed: C reat: 1.60 (09/23/2016) His updated medication list for this problem includes: Lisinopril 30 Mg Oral Tablet (Lisinopril) ..... Take 1 tab daily Furosemide 20 Mg Oral Tablet (Furosemide) ..... Once daily Atenolol 25 Mg Oral Tablet (Atenolol) ..... One tab. daily Nifedipine Er 60 Mg Oral Tablet Extended Release 24 Hour (Nifedipine) ..... One tab. daily Nataliya Putnam MD Cardiology follow up : N egative carotid US Conclusions: 1 . Normal carotid duplex examination. 2 . Vertebral flow is antegrade bilaterally Nataliya Putnam MD Cardiology follow up : 1 . Normal LV systolic function with EF 65%. 2 . Stage 1 diastolic dysfunction. 3 . Mild LA chamber enlargement. 4 . Mild aortic, mitral and tricuspid regurgitation. 5 . Mild pulmonary hypertension with estimated PA systolic pressure 40 mm Hg. Nataliya Putnam MD Cardiology follow up : T he patient should utilize CPAP at a pressure of 12cm during all sleep periods. In the lab, the patient utilized a wisp nasal interface, size large. A heated humidifier and 15 minute ramp are recommended NEVER GOT CPAP March 30, 2020 A rrange IHS because apparently that is what was needed Nataliya Putnam MD Cardiology follow up : R ecent dual chamber pacemaker placement. A-paced rhythm. care home AC with Eliquis, which he continues. Incision site is healed. Continues as well on atenolol 25mg daily. Nataliya Putnam MD Cardiology - BILLING NEEDED:The patient should utilize CPAP at a pressure of 12cm during all sleep periods. In the lab, the patient utilized a wisp nasal interface, size large. A heated humidifier and 15 minute ramp are recommended NEVER GOT CPAP Nataliya Putnam MD Cardiology - BILLING NEEDED: R ecent dual chamber pacemaker placement. A-paced rhythm. 1% atrial burden, mostly afib/flutter. care home AC with Eliquis, which he continues. Incision site is healed. Continues as well on atenolol 25mg daily. Nataliya Putnam MD Cardiology - BILLING NEEDED: N egative carotid US Conclusions: 1 . Normal carotid duplex examination. 2 . Vertebral flow is antegrade bilaterally Nataliya Putnam MD Cardiology - BILLING NEEDED: O n A/C. Nataliya Putnam MD Cardiology - BILLING NEEDED: B P today: 169/92 P rior BP: 140/67 (03/02/2019) Labs Reviewed: C reat: 1.60 (09/23/2016) His updated medication list for this problem includes: Lisinopril 40 Mg Oral Tablet (Lisinopril) ..... One tab. daily Furosemide 20 Mg Oral Tablet (Furosemide) ..... Once daily Atenolol 25 Mg Oral Tablet (Atenolol) ..... One tab. daily Nifedipine Er 60 Mg Oral Tablet Extended Release 24 Hour (Nifedipine) ..... One tab. daily Nataliya Putnam MD Cardiology - BILLING NEEDED: O n Eliquis for anti coagulation. Nataliya Putnam MD Cardiology: H is updated medication list for this problem includes: Atorvastatin Calcium 40 Mg Oral Tablet (Atorvastatin calcium) ..... Once daily Nicole Song NP Cardiology:On Eliqui s for anti coagulation. His updated medication list for this problem includes: Lisinopril 40 Mg Oral Tablet (Lisinopril) ..... One tab. daily Atenolol 25 Mg Oral Tablet (Atenolol) ..... One tab. daily Nifedipine Er 60 Mg Oral Tablet Extended Release 24 Hour (Nifedipine) ..... One tab. daily Nicole Song NP Cardiology: B P today: 140/67 P rior BP: 136/80 (07/30/2018) Labs Reviewed: C reat: 1.60 (09/23/2016) His updated medication list for this problem includes: Lisinopril 40 Mg Oral Tablet (Lisinopril) ..... One tab. daily Furosemide 20 Mg Oral Tablet (Furosemide) ..... Once daily Atenolol 25 Mg Oral Tablet (Atenolol) ..... One tab. daily Nifedipine Er 60 Mg Oral Tablet Extended Release 24 Hour (Nifedipine) ..... One tab. daily Nicole Song NP Cardiology follow up : N egative carotid US Nataliya Putnam MD Cardiology follow up : R ecent dual chamber pacemaker placement. A-paced rhythm. 1% atrial burden, mostly afib/flutter. 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 Incision site is healed. Continues as well on atenolol 25mg daily. Nataliya Putnam MD Cardiology follow up : B P today: 136/80 P rior BP: 143/93 (01/29/2018) Labs Reviewed: C reat: 1.60 (09/23/2016) His updated medication list for this problem includes: Lisinopril 40 Mg Oral Tablet (Lisinopril) ..... One tab. daily Furosemide 20 Mg Oral Tablet (Furosemide) ..... Once daily Atenolol 25 Mg Oral Tablet (Atenolol) ..... One tab. daily Nifedipine Er 60 Mg Oral Tablet Extended Release 24 Hour (Nifedipine) ..... One tab. daily Nataliya Putnam MD Cardiology follow up :Remains on Eliquis H is updated medication list for this problem includes: Atenolol 25 Mg Oral Tablet (Atenolol) ..... One tab. daily Nataliya Putnam MD Cardiology follow up : W ill setup for repeat in-lab sleep titration study. O rders: S leep Study Titration ([id number]) 9 9214 MOD Complex ([id number]) Nataliya Putnam MD Cardiology - please bill: B P today: 143/93 P rior BP: 142/82 (07/24/2017) Labs Reviewed: C reat: 1.60 (09/23/2016) His updated medication list for this problem includes: Lisinopril 40 Mg Oral Tablet (Lisinopril) ..... One tab. daily Furosemide 20 Mg Oral Tablet (Furosemide) ..... Once daily Atenolol 25 Mg Oral Tablet (Atenolol) ..... One tab. daily Nifedipine Er 60 Mg Oral Tablet Extended Release 24 Hour (Nifedipine) ..... One tab. daily Starla Francismiglia BUFFET WAITER/WAITRESS Cardiology - please bill: Adithya modi setup for repeat in-lab sleep titration study. Orders: S lee Study Titration ([id number]) Starla Ventimiglia BUFFET WAITER/WAITRESS Cardiology follow up : B lood pressure control is satisfactory. Continues on lisinopril and nifedipine. Nataliya Putnam MD Cardiology follow up :1. Normal LV systolic function with EF 65%. 2 . Stage 1 diastolic dysfunction. 3 . Mild LA chamber enlargement. 4 . Mild aortic, mitral and tricuspid regurgitation. 5 . Mild pulmonary hypertension with estimated PA systolic pressure 40 mm Hg. Nataliya Putnam MD Cardiology follow up : S evere SHARAN. Discussed the health risks of not using a CPAP or other device. Pt. open to trying a nasal pillow. Nataliya Putnam MD Cardiology follow up : N egative carotid US Nataliya Putnam MD Cardiology follow up : O n A/C. Nataliya Putnam MD Cardiology Follow up:No further episodes Nataliya Putnam MD Cardiology Follow up:Negative ca rotid US Nataliya Putnam MD Cardiology Follow up:On A/C. [place] Putnam MD Cardiology Follow up :Severe SHARAN. Does not want CPAP. Consider oral mouthpiece 'someting better than nothing.' Nataliya Putnam MD Cardiology:Continues on atorvast atin. Arjun Conard MD Cardiology:Blood pre ssure control is satisfactory. Continues on lisinopril and nifedipine. 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 A-paced rhythm. 1% atrial burden, mostly afib/flutter. care home AC with Eliquis, which he continues. Incision site is healed. Continues as well on atenolol 25mg daily. Arjun Conrad MD Cardiology: H is updated medication list for this problem includes: Lisinopril 40 Mg Tabs (Lisinopril) ..... One tab. daily Atenolol 25 Mg Tabs (Atenolol) ..... One tab. daily Nifedipine 60 Mg Tb24 (Nifedipine) ..... One tab. daily Nataliya Putnam MD Cardiology: H is updated medication list for this problem includes: Lisinopril 40 Mg Tabs (Lisinopril) ..... One tab. daily Furosemide 20 Mg Tabs (Furosemide) ..... Once daily Atenolol 25 Mg Tabs (Atenolol) ..... One tab. daily Nifedipine 60 Mg Tb24 (Nifedipine) ..... One tab. daily Nataliya Putnam MD Cardiology:Severe OS A on home sleep. Will schedule titration study at [facility]. Nataliya Putnam MD Cardiology:Has a flora iety of arrhythmias that are noted including pauses, transitions, and junctional rhythm. Any of these could have prompted the epsiode that promted his visit to us. Reviewed with pt and . All questions answered. Will be scheduled for DC PPM. Nataliya Putnam MD Cardiology:Home sleep Nataliya Putnam MD Cardiology:needs echo and ischem c workup Nataliya Putnam MD Cardiology:RLE edema , > left. May have issues with venous insufficiency Nataliya Putnam MD Cardiology:Multiple meds. Needs renal artery US. H is updated medication list for this problem includes: Lisinopril 40 Mg Tabs (Lisinopril) ..... One tab. daily Furosemide 20 Mg Tabs (Furosemide) ..... Once daily Atenolol 25 Mg Tabs (Atenolol) ..... One tab. daily Nifedipine 60 Mg Tb24 (Nifedipine) ..... One tab. daily Nataliya Putnam MD Cardiology:Discussed the need to a cardaic monitor to evaluate his possible vagal event. Denies previous instance of syncope, palpitations, or lightheadedness. Tele monitor. Nataliya Putnam MD Cardiology:Carotid US Nataliya Putnam MD Date Name Dr. Conrad Carotid Duplex Bilat eral Complete Echo EKG RPM (remote patient monitoring) Other Test Complete Echo Carotid Duplex Bilat eral Stress Regadenoson Sleep Study Home Sleep Study Titratio n Sleep Study Titratio n Other Test PARTIAL THROMBOPLAST IN TIME, ACTIVATED URINALYSIS, COMPLETE W/REFLEX TO CULTURE COMPREHENSIVE METABO LIC PANEL W/EGFR PROTHROMBIN TIME WIT H INR CBC (INCLUDES DIFF/P LT) BASIC METABOLIC PANE L W/EGFR Sleep Study Titratio n Venous Doppler Bilat eral LE - Reflux Mobile Cardiac Tele STR - Adenosine Complete Echo Aorta Duplex Ultraso und (AAA) Renal Artery Duplex Carotid Duplex Bilat eral Sleep Study Home HISTORY OF PROCEDURES Procedure Date Procedure Name Provider Procedure Notes S tatus Complex e/m visit ad d on Nataliya Putnam MD completed EKG Nataliya Putnam MD completed EKG Nataliya Putnam MD completed EKG Nataliya Putnam MD completed EKG Nataliya Putnam MD completed EKG Nataliya Putnam MD completed EKG Nataliya Putnam MD completed EKG Nataliya Putnam MD completed ICM Interrogation, Remote (Prof) Nataliya Putnam MD INTERROGATION EVAL REMOTE </30 D CV MNTR SYS completed ICM Interrogation, Remote (Tech) Nataliya Putnam MD INTERROGATION EVAL REMOTE </30 D TECH REVIEW completed ICM Interrogation, Remote (Prof) Nataliya Putnam MD INTERROGATION EVAL REMOTE </30 D CV MNTR SYS completed ICM Interrogation, Remote (Tech) Nataliya Putnam MD INTERROGATION EVAL REMOTE </30 D TECH REVIEW completed EKG Nataliya Putnam MD completed ICM Interrogation, Remote (Prof) Nataliya Putnam MD INTERROGATION EVAL REMOTE </30 D CV MNTR SYS completed Pacemaker Interrogation, Remote (Tech) Nataliya Putnam MD INTERROGATION REMOTE </90 D AUTOMATIC LOG CUT OFF SAWYER REVIEW completed Pacemaker Interrogation, Remote (Prof) Nataliya Putnam MD INTERROGATION EVAL REMOTE </90 D 1/2/STEWARD/STEWARDESS RAILROAD DINING CAR LEAD P completed ICM Interrogation, Remote (Prof) Nataliya Putnam MD INTERROGATION EVAL REMOTE </30 D CV MNTR SYS completed ICM Interrogation, Remote (Tech) Nataliya Putnam MD INTERROGATION EVAL REMOTE </30 D TECH REVIEW completed ICM Interrogation, Remote (Prof) Nataliya Putnam MD INTERROGATION EVAL REMOTE </30 D CV MNTR SYS completed Pacemaker Interrogation, Remote (Tech) Nataliya Putnam MD INTERROGATION REMOTE </90 D AUTOMATIC LOG CUT OFF SAWYER REVIEW completed Pacemaker Interrogation, Remote (Prof) Nataliya Putnam MD INTERROGATION EVAL REMOTE </90 D 1/2/STEWARD/STEWARDESS RAILROAD DINING CAR LEAD P completed ICM Interrogation, Remote (Prof) Nataliya Putnam MD INTERROGATION EVAL REMOTE </30 D CV MNTR SYS completed ICM Interrogation, Remote (Tech) Nataliya Putnam MD INTERROGATION EVAL REMOTE </30 D TECH REVIEW completed ICM Interrogation, Remote (Prof) Nataliya Putnam MD INTERROGATION EVAL REMOTE </30 D CV MNTR SYS completed ICM Interrogation, Remote (Tech) Nataliya Putnam MD INTERROGATION EVAL REMOTE </30 D TECH REVIEW completed ICM Interrogation, Remote (Prof) Nataliya Putnam MD INTERROGATION EVAL REMOTE </30 D CV MNTR SYS completed Pacemaker Interrogation, Remote (Tech) Nataliya Putnam MD INTERROGATION REMOTE </90 D AUTOMATIC LOG CUT OFF SAWYER REVIEW completed Pacemaker Interrogation, Remote (Prof) Nataliya Putnam MD INTERROGATION EVAL REMOTE </90 D 1/2/STEWARD/STEWARDESS RAILROAD DINING CAR LEAD P completed Schedule Followup Nataliya finney MD in 6 mo completed EKG Nataliya Putnam MD completed ICM Interrogation, Remote (Prof) Nataliya Putnam MD INTERROGATION EVAL REMOTE </30 D CV MNTR SYS completed ICM Interrogation, Remote (Tech) Nataliya Putnam MD INTERROGATION EVAL REMOTE </30 D TECH REVIEW completed ICM Interrogation, Remote (Prof) Nataliya Putnam MD INTERROGATION EVAL REMOTE </30 D CV MNTR SYS completed ICM Interrogation, Remote (Tech) Nataliya Putnam MD INTERROGATION EVAL REMOTE </30 D TECH REVIEW completed ICM Interrogation, Remote (Prof) Nataliya Putnam MD INTERROGATION EVAL REMOTE </30 D CV MNTR SYS completed Pacemaker Interrogation, Remote (Tech) Nataliya Putnam MD INTERROGATION REMOTE </90 D AUTOMATIC LOG CUT OFF SAWYER REVIEW completed Pacemaker Interrogation, Remote (Prof) Nataliya Putnam MD INTERROGATION EVAL REMOTE </90 D 1/2/STEWARD/STEWARDESS RAILROAD DINING CAR LEAD P completed ICM Interrogation, Remote (Prof) Nataliya Putnam MD INTERROGATION EVAL REMOTE </30 D CV MNTR SYS completed ICM Interrogation, Remote (Tech) Nataliya Putnam MD INTERROGATION EVAL REMOTE </30 D TECH REVIEW completed EKG Nataliya Putnam MD completed ICM Interrogation, Remote (Prof) Nataliya Putnam MD INTERROGATION EVAL REMOTE </30 D CV MNTR SYS completed ICM Interrogation, Remote (Tech) Naatliya Putnam MD INTERROGATION EVAL REMOTE </30 D TECH REVIEW completed ICM Interrogation, Remote (Prof) Nataliya Putnam MD INTERROGATION EVAL REMOTE </30 D CV MNTR SYS completed Pacemaker Interrogation, Remote (Tech) Nataliya Putnam MD INTERROGATION REMOTE </90 D AUTOMATIC LOG CUT OFF SAWYER REVIEW completed Pacemaker Interrogation, Remote (Prof) Nataliya Putnam MD INTERROGATION EVAL REMOTE </90 D 1/2/STEWARD/STEWARDESS RAILROAD DINING CAR LEAD P completed ICM Interrogation, Remote (Prof) Nataliya Putnam MD INTERROGATION EVAL REMOTE </30 D CV MNTR SYS completed ICM Interrogation, Remote (Tech) Nataliya Putnam MD INTERROGATION EVAL REMOTE </30 D TECH REVIEW completed ICM Interrogation, Remote (Prof) Nataliya Putnam MD INTERROGATION EVAL REMOTE </30 D CV MNTR SYS completed ICM Interrogation, Remote (Tech) Nataliya Putnam MD INTERROGATION EVAL REMOTE </30 D TECH REVIEW completed Pacemaker Interrogation, Remote (Tech) Nataliya Putnam MD INTERROGATION REMOTE </90 D AUTOMATIC LOG CUT OFF SAWYER REVIEW completed Pacemaker Interrogation, Remote (Prof) Nataliya Putnam MD INTERROGATION EVAL REMOTE </90 D 1/2/STEWARD/STEWARDESS RAILROAD DINING CAR LEAD P completed EKG Nataliya Putnam MD completed SNOMED-CT: [id number] Current Medications Documented Nataliya Putnam MD completed ICM Interrogation, Remote (Prof) Nataliya Putnam MD INTERROGATION EVAL REMOTE </30 D CV MNTR SYS completed ICM Interrogation, Remote (Tech) Nataliya Putnam MD INTERROGATION EVAL REMOTE </30 D TECH REVIEW completed ICM Interrogation, Remote (Prof) Nataliya Putnam MD INTERROGATION EVAL REMOTE </30 D CV MNTR SYS completed ICM Interrogation, Remote (Tech) Nataliya Putnam MD INTERROGATION EVAL REMOTE </30 D TECH REVIEW completed EKG Arjun Conrad MD completed SNOMED-CT: [id number] Current Medications Documented Arjun Conrad MD completed EKG Nataliya Putnam MD completed SNOMED-CT: [id number] Current Medications Documented Nataliya Putnam MD completed Stress EKG Arjun Conrad MD completed Regadenoson, 4 units Nataliya licea MD completed Cardiolite, 2 units Nataliya brantley MD completed SPECT Images Arjun Conrad MD completed Mobile Cardiac Telemetry - Tech Nataliya Putnam MD completed Mobile Cardiac Telemetry - Prof Nataliya Putnam MD completed EKG Nataliya Putnam MD completed SNOMED-CT: [id number] Current Medications Documented Nataliya Putnam MD completed
--- OUTSIDE RECORDS SUMMARY | 2024-07-07 09:18 | XMS_ITS ---
Author Organization [facility] Address [address] [place] [address] Care Team Providers Care Hogshead Liner Name Role Phone Jose Luna Unavailable [phone] MEDICATIONS Medication SIG (Take, Route, Frequency, Duration) Notes Start Date End Date Status traMADol HCl 50 MG 1 tablet as needed Orally Once a day Active Potassium Chloride Kaylyn ER 10 MEQ TAKE 1 TABLET BY MOUTH ONCE DAILY WITH FOOD for 100 Active Calcitriol 0.25 MCG TAKE 1 CAPSULE BY MO [facility] ONCE DAILY for 100 Active Atenolol 25 MG 1 tablet Orally Once a day Active Furosemide 40 MG 1 tablet Orally TWIC E A DAY for 90 days Active Spironolactone 25 MG 1 tablet Orally onc e a day for 90 days 07/17/2023 07/11/2024 Active Furosemide 20 MG TAKE 1 TABLET BY [facility] ONCE DAILY for 100 Active Potassium Chloride Kaylyn ER 20 MEQ TAKE 1 TABLET BY MOUTH TWICE DAILY WITH FOOD for 100 Active Lasix 40 MG 1 tablet Orally twic e a day for 90 day(s) 05/08/2021 Active Torsemide 10 MG 1 tablet Orally Once a day for 90 day(s) 07/10/2021 Active Atorvastatin Calcium 40 MG 1 tablet Oral ly Once a day Active Lisinopril 30 MG 1 tablet Orally Once a day Active NIFEdipine ER 60 MG 1 tablet on an empty stomach Orally Once a day Active Eliquis 5 MG as directed Orally Active SOCIAL HISTORY Sex Assigned At : Social History Observation Description Sex Assigned At Male PROBLEMS Problem Type ICD Code Onset Dates Problem Status W/U Status Risk SNOMED Code Notes Problem Chronic kidney disease, stage 3b (N18.32) Active confirmed Chronic kidney disease stage 3B (disorder) (721325743) Problem Hypernatremia (E87.0) Active confirmed Hypernatremia (631446522) Problem Bacteriuria (R82.71) Active confirmed Bacteriuria (76070094) Encounters Encounter Location Date Provider Diagnosis [place] [facility] [address] [facility] [address] [place] [address] 06/01/2024 Jose Luna Chronic kidney disea se, stage 3b N18.32 ; Essential hypertension I10 ; Renal osteodystrophy N25.0 ; Secondary hyperparathyroidism of renal origin N25.81 ; Other proteinuria R80.8 ; Other microscopic hematuria R31.29 ; Hypokalemia E87.6 ; Hypernatremia E87.0 and Bacteriuria R82.71 ASSESSMENTS Encounter Date Diagnosis Assessment Notes Treatment Notes Treatment Clinical Notes Section Notes 06/01/2024 Chronic kidney disea se, stage 3b (ICD-10 - N18.32) 06/01/2024 Essential hypertensi on (ICD-10 - I10) 06/01/2024 Renal osteodystrophy (ICD-10 - N25.0) 06/01/2024 Secondary hyperparathyroidism of renal origin (ICD-10 - N25.81) 06/01/2024 Other proteinuria (ICD-10 - R80.8) 06/01/2024 Other microscopic hematuria (ICD-10 - R31.29) 06/01/2024 Hypokalemia (ICD-10 - E87.6) 06/01/2024 Hypernatremia (ICD-1 0 - E87.0) 06/01/2024 Bacteriuria (ICD-10 - R82.71) PLAN OF TREATMENT Next Appt Details Provider Name:Joseaura Luna , 08/05/2024 12:30:00 PM, [address] [facility], [facility] [address], [place], [address], Progress Notes * YARELIS CHAVEZDOB:1940 (83 yo M)Acc No.[id number]:06/01/2024 Progress Notes Patient: YARELIS CHAVEZ Provider: MD CRISTINA, F.A.C.P, F.A.S.N. :1940 Age:83 Y Sex:Male Date:06/01/2024 Address:[facility] [address] [place], [place] Subjective: * Chief Complaints: * * Medical History: * Medications: Taking Atenolol 25 MG Tablet 1 tablet Orally Once a day , Taking traMADol HCl 50 MG Tablet 1 tablet as needed Orally Once a day , Taking Eliquis 5 MG Tablet as directed Orally , Taking Lisinopril 30 MG Tablet 1 tablet Orally Once a day , Taking NIFEdipine ER 60 MG Tablet Extended Release 24 Hour 1 tablet on an empty stomach Orally Once a day , Taking Atorvastatin Calcium 40 MG Tablet 1 tablet Orally Once a day , Taking Lasix 40 MG Tablet 1 tablet Orally twice a day , Taking Torsemide 10 MG Tablet 1 tablet Orally Once a day , Taking Furosemide 20 MG Tablet TAKE 1 TABLET BY MOUTH ONCE DAILY , Taking Potassium Chloride Kaylyn ER 20 MEQ Tablet Extended Release TAKE 1 TABLET BY MOUTH TWICE DAILY WITH FOOD , Taking Spironolactone 25 MG Tablet 1 tablet Orally once a day , stop date 07/11/2024, Taking Furosemide 40 MG Tablet 1 tablet Orally TWICE A DAY , Taking Potassium Chloride Kaylyn ER 10 MEQ Tablet Extended Release TAKE 1 TABLET BY MOUTH ONCE DAILY WITH FOOD , Taking Calcitriol 0.25 MCG Capsule TAKE 1 CAPSULE BY MOUTH ONCE DAILY Objective: Assessment: * Assessment: 1. Chronic kidney disease, stage 3b - N18.32 (Primary) 2. Essential hypertension - I10 3. Renal osteodystrophy - N25.0 4. Secondary hyperparathyroidism of renal origin - N25.81 5. Other proteinuria - R80.8 6. Other microscopic hematuria - R31.29 7. Hypokalemia - E87.6 8. Hypernatremia - E87.0 9. Bacteriuria - R82.71 Plan: * Treatment: * Billing Information: * Visit Code: 83614 Office Visit, Est Pt., Level 4. * Procedure Codes: * Sign off status: Pending * Provider: MD CRISTINA, F.A.C.P, F.A.S.N. Date: 06/01/2024
--- OUTSIDE RECORDS SUMMARY | 2024-07-07 09:18 | XMS_ITS | Patient Health Record ---
Author Organization [facility] Address [address] [place] [address] Care Team Providers Care Internet Ecommerce Specialist Name Role Phone Jose Luna Unavailable [phone] REASON FOR REFERRAL No Information MEDICATIONS Medication SIG (Take, Route, Frequency, Duration) Notes Start Date End Date Status traMADol HCl 50 MG 1 tablet as needed Orally Once a day Active Potassium Chloride Kaylyn ER 10 MEQ TAKE 1 TABLET BY MOUTH ONCE DAILY WITH FOOD for 100 Active Eliquis 5 MG as directed Orally Active Calcitriol 0.25 MCG TAKE 1 CAPSULE BY [facility] ONCE DAILY for 100 Active Spironolactone 25 MG 1 tablet Orally onc e a day for 90 days 07/17/2023 07/11/2024 Active Atenolol 25 MG 1 tablet Orally Once a day Active Furosemide 40 MG 1 tablet Orally TWIC E A DAY for 90 days Active Furosemide 20 MG TAKE 1 TABLET [...] empty stomach Orally Once a day Active SOCIAL HISTORY Sex Assigned At : Social History Observation Description Sex Assigned At Male PROBLEMS Problem Type ICD Code Onset Dates Problem Status W/U Status Risk SNOMED Code Notes Problem Hypokalemia (E87.6) Active confirmed Hy pokalemia (27147799) Problem Renal osteodystrophy (N25.0) Active confirmed Renal osteodyst rophy (90132124) Problem Secondary hyperparathyroidism of renal origin (N25.81) Active confirmed Secondary hyperparathyroidism of renal origin (10006152) Problem Other proteinuria (R80.8) Active confirmed Proteinuria (51245349) Problem Essential hypertension (I10) Active confirmed Essential hypertension (24374878) Problem Hypernatremia (E87.0) Active confirmed Hypernatremia (523349039) Problem Other microscopic hematuria (R31.29) Active confirmed Microscop ic hematuria (371505603) Problem Bacteriuria (R82.71) Active confirmed B acteriuria (17928578) Problem Chronic kidney disease, stage 3b (N18.32) Active confirmed Chronic kidney disease stage 3B (disorder) (317959080) Encounters Encounter Location Date Provider Diagnosis [place] [facility] [address] [place] [address] 07/17/2023 Jose Luna Chronic kidney disea se, stage 3a N18.31 ; Secondary hyperparathyroidism, not elsewhere classified E21.1 ; Renal osteodystrophy N25.0 ; Other proteinuria R80.8 and Other microscopic hematuria R31.29 [facility] [address] [address] 10/16/2023 Jose Luna Chronic kidney disea se, stage 3a N18.31 ; Secondary hyperparathyroidism, not elsewhere classified E21.1 ; Renal osteodystrophy N25.0 ; Other proteinuria R80.8 and Other microscopic hematuria R31.29 [facility] [place] [facility] [address] [place] [address] 01/01/2024 Jose Luna Chronic kidney disea se, stage 3a N18.31 ; Secondary hyperparathyroidism, not elsewhere classified E21.1 ; Renal osteodystrophy N25.0 ; Other proteinuria R80.8 and Other microscopic hematuria R31.29 [facility] [address] [place] [address] 02/26/2024 Jose [facility] [address] [place] [address] 03/18/2024 Jose Luna Chronic kidney disea se, stage 3a N18.31 ; Essential hypertension I10 ; Renal osteodystrophy N25.0 ; Secondary hyperparathyroidism, not elsewhere classified E21.1 ; Secondary hyperparathyroidism of renal origin N25.81 and Proteinuria, unspecified R80.9 [facility] [address] [place] [address] 05/13/2024 Jose Luna Chronic kidney disea se, stage 3a N18.31 ; Essential hypertension I10 ; Secondary hyperparathyroidism of renal origin N25.81 ; Renal osteodystrophy N25.0 ; Other proteinuria R80.8 ; Other microscopic hematuria R31.29 and Hypokalemia E87.6 [facility] [address] [place] [address] 06/01/2024 Jose Luna Chronic kidney disea se, stage 3b N18.32 ; Essential hypertension I10 ; Renal osteodystrophy N25.0 ; Secondary hyperparathyroidism of renal origin N25.81 ; Other proteinuria R80.8 ; Other microscopic hematuria R31.29 ; Hypokalemia E87.6 ; Hypernatremia E87.0 and Bacteriuria R82.71 [facility] [address] [place] [address] 06/01/2024 Jose [facility] [address] [place] [address] 07/17/2023 Jose Luna ASSESSMENTS Encounter Date Diagnosis Assessment Notes Treatment Notes Treatment Clinical Notes Section Notes 07/17/2023 Chronic kidney disea se, stage 3a (ICD-10 - N18.31) 10/16/2023 Chronic kidney disea se, stage 3a (ICD-10 - N18.31) 01/01/2024 Chronic kidney disea se, stage 3a (ICD-10 - N18.31) 03/18/2024 Essential hypertensi on (ICD-10 - I10) 03/18/2024 Chronic kidney disea se, stage 3a (ICD-10 - N18.31) 05/13/2024 Chronic kidney disea se, stage 3a (ICD-10 - N18.31) 06/01/2024 Chronic kidney disea se, stage 3b (ICD-10 - N18.32) 05/13/2024 Essential hypertensi on (ICD-10 - I10) 06/01/2024 Essential hypertensi on (ICD-10 - I10) 03/18/2024 Renal osteodystrophy (ICD-10 - N25.0) 01/01/2024 Secondary hyperparathyroidism, not elsewhere classified (ICD-10 - E21.1) 10/16/2023 Secondary hyperparathyroidism, not elsewhere classified (ICD-10 - E21.1) 07/17/2023 Secondary hyperparathyroidism, not elsewhere classified (ICD-10 - E21.1) 07/17/2023 Renal osteodystrophy (ICD-10 - N25.0) 10/16/2023 Renal osteodystrophy (ICD-10 - N25.0) 01/01/2024 Renal osteodystrophy (ICD-10 - N25.0) 03/18/2024 Secondary hyperparathyroidism, not elsewhere classified (ICD-10 - E21.1) 05/13/2024 Secondary hyperparathyroidism of renal origin (ICD-10 - N25.81) 06/01/2024 Renal osteodystrophy (ICD-10 - N25.0) 06/01/2024 Secondary hyperparathyroidism of renal origin (ICD-10 - N25.81) 05/13/2024 Renal osteodystrophy (ICD-10 - N25.0) 03/18/2024 Secondary hyperparathyroidism of renal origin (ICD-10 - N25.81) 01/01/2024 Other proteinuria (ICD-10 - R80.8) 10/16/2023 Other proteinuria (ICD-10 - R80.8) 07/17/2023 Other proteinuria (ICD-10 - R80.8) 07/17/2023 Other microscopic hematuria (ICD-10 - R31.29) 10/16/2023 Other microscopic hematuria (ICD-10 - R31.29) 01/01/2024 Other microscopic hematuria (ICD-10 - R31.29) 03/18/2024 Proteinuria, unspecified (ICD-10 - R80.9) 05/13/2024 Other proteinuria (ICD-10 - R80.8) 06/01/2024 Other proteinuria (ICD-10 - R80.8) 05/13/2024 Other microscopic hematuria (ICD-10 - R31.29) 06/01/2024 Other microscopic hematuria (ICD-10 - R31.29) 06/01/2024 Hypokalemia (ICD-10 - E87.6) 05/13/2024 Hypokalemia (ICD-10 - E87.6) 06/01/2024 Hypernatremia (ICD-1 0 - E87.0) 06/01/2024 Bacteriuria (ICD-10 - R82.71) PLAN OF TREATMENT Next Appt Details Provider Name:Jose Luna , 08/05/2024 12:30:00 PM, [address] [facility] [address], [address],
--- OUTSIDE RECORDS SUMMARY | 2024-07-07 09:18 | XMS_ITS ---
Author Organization [facility] Address [address] [place] [address] Care Team Providers Care Global Compensation Analyst Name Role Phone Jose Luna [phone] MEDICATIONS Medication SIG (Take, Route, Fr equency, Duration) Notes Start Date End Date Status Cipro 500 MG 1 tablet Orally every 12 hrs for 10 0 06/01/2024 06/11/2024 Active SOCIAL HISTORY Sex Assigned At : Social History Observation Description Sex Assigned At Male Encounters Encounter Location Date Provider Diagnosis [place] [facility] [address] [facility] [address] [place] [address] 06/01/2024 Jose Luna PLAN OF TREATMENT Medication Medication Name Sig Start Date Stop Date Notes Cipro 500 MG 1 tablet Orally every 12 hrs for 10 06/11/2024 Next Appt Details Provider Name:Jose Luna , 08/05/2024 12:30:00 PM, [address] [facility] [address], [place], [address], Progress Notes * SCOTT YARELISDOB:1940 (83 yo M)Acc No.[id number]:06/01/2024 Patient: YARELIS CHAVEZ :1940 Age:83 Y Sex:Male Address:[facility] [place], [address] * Refills Start Cipro Tablet, 500 MG, Orally, 20, 1 tablet, every 12 hrs, 10 * * Date:
--- OUTSIDE RECORDS SUMMARY | 2024-07-07 09:18 | XMS_ITS ---
Author Organization [facility] Address [address] [place] [address] Care Team Providers [employer] Worker Name Role Phone Jose Luna Unavailable [phone] SOCIAL HISTORY Sex Assigned At : Social History Observation Description Sex Assigned At Male PROBLEMS Problem Type ICD Code Onset Dates Problem Status W/U Status Risk SNOMED Code Notes Problem Hypokalemia (E87.6) Active confirmed Hypokalemia (08106834) Encounters Encounter Location Date Provider Diagnosis [facility] [address] [facility] [address] [place] [address] 05/13/2024 Jose Luna Chronic kidney disea se, stage 3a N18.31 ; Essential hypertension I10 ; Secondary hyperparathyroidism of renal origin N25.81 ; Renal osteodystrophy N25.0 ; Other proteinuria R80.8 ; Other microscopic hematuria R31.29 and Hypokalemia E87.6 ASSESSMENTS Encounter Date Diagnosis Assessment Notes Treatment Notes Treatment Clinical Notes Section Notes 05/13/2024 Chronic kidney disea se, stage 3a (ICD-10 - N18.31) 05/13/2024 Essential hypertensi on (ICD-10 - I10) 05/13/2024 Secondary hyperparathyroidism of renal origin (ICD-10 - N25.81) 05/13/2024 Renal osteodystrophy (ICD-10 - N25.0) 05/13/2024 Other proteinuria (ICD-10 - R80.8) 05/13/2024 Other microscopic hematuria (ICD-10 - R31.29) 05/13/2024 Hypokalemia (ICD-10 - E87.6) PLAN OF TREATMENT Next Appt Details Provider Name:Jose Luna , 08/05/2024 12:30:00 PM, [address] [facility] [address], [place], [address], Progress Notes * YARELIS CHAVEZDOB:1940 (83 yo M)Acc No.[id number]:05/13/2024 Progress Notes Patient: YARELIS CHAVEZ Provider: MD CRISTINA, JessicaP, F.A.S.N. :1940 Age:83 Y Sex:Male Date:05/13/2024 Address:[id number] Subjective: * Chief Complaints: * * Medical History: Objective: Assessment: * Assessment: 1. Chronic kidney disease, stage 3a - N18.31 (Primary) 2. Essential hypertension - I10 3. Secondary hyperparathyroidism of renal origin - N25.81 4. Renal osteodystrophy - N25.0 5. Other proteinuria - R80.8 6. Other microscopic hematuria - R31.29 7. Hypokalemia - E87.6 Plan: * Treatment: * Billing Information: * Visit Code: 03675 Office Visit, Est Pt., Level 5. * Procedure Codes: * Sign off status: Pending * Provider: MD CRISTINA, Rose Mary.P, F.A.S.N. Date: 05/13/2024
== END 2024-07-07 09:05 | disposition home or self-care (01) ==
PROVIDERS: PCP Internal Medicine Infectious Disease; Visit Provider Specialist
DX: R93.429 Abnormal radiologic findings on diagnostic imaging of unspecified kidney (principal); N20.0 Calculus of kidney; N18.31 Chronic kidney disease, stage 3a; N28.1 Cyst of kidney, acquired; N40.0 Benign prostatic hyperplasia without lower urinary tract symptoms; K76.89 Other specified diseases of liver
CPT/HCPCS: 76770